=== PATIENT | male | born 1940 | race Caucasian/White ===

== ENCOUNTER 2023-09-04 10:42 | Day surgery (SDC) | payer MEDICARE, BC ==
[2023-08-31 15:14] LABS: Urine Bacteria None Seen /hpf (None Seen)
[2023-08-31 15:24] LABS: Hemoglobin 12.3 g/dL (13.5-17.5); Mean Corpuscular Hemoglobin 35.4 pg (28.0-32.0); Mean Corpuscular Hgb Conc. 33.1 g/dL (32.0-36.0); White Blood Cell 4.3 10^3/uL (4.4-10.8)
[2023-08-31 15:25] LABS: Hematocrit 37.1 % (41.0-53.0); Red Blood Cells 3.47 10^6/uL (4.5-5.90); Red Cell Distribution Width 15.4 % (11.8-14.3)
[2023-08-31 15:29] LABS: Urine Blood Negative /uL (Negative); Urine Clarity Clear (Clear); Urine Color Colorless (Yellow); Urine Protein, UAD Negative (Negative); Urine Specific Gravity 1.009 (1.001-1.035); Urine Urobilinogen Normal (Negative); Urine WBC 2 /hpf (0 - 3)
[2023-08-31 15:34] LABS: Basophils % (manual) 0 (0.0-2.0); Blast Cells 0; Metamyelocytes % 0; Myelocytes % 0; Promyelocytes % 0; Reactive Lymphocytes 0
[2023-08-31 15:40] LABS: INR 1.19 (0.9-1.15); Prothrombin Time 12.5 sec (9.3-11.8)
[2023-08-31 15:54] LABS: Alanine Aminotransferase 18 U/L (7-40); Albumin 4.2 g/dL (3.2-4.8); Alkaline Phosphatase 94 U/L (46-116); Anion Gap 5 (5-15); Aspartate Aminotransferase 26 U/L (13-40); BUN/Creatinine Ratio 15.3 (10.0-20.0); Blood Urea Nitrogen 15 mg/dL (9-23); Calcium 9.8 mg/dL (8.5-10.1); Carbon Dioxide 31 mmol/L (20-30); Chloride 104 mmol/L (98-107); Glucose 99 mg/dL (74-106); Potassium 4.3 mmol/L (3.5-5.1); Sodium 140 mmol/L (136-145)
[2023-08-31 15:55] LABS: Bilirubin, Total 0.8 mg/dL (0.2-1.0); Total Protein 6.5 g/dL (5.7-8.2)
[2023-08-31 16:15] LABS: Band Neutrophils % (manual) 5; Eosinophils % (manual) 8 (0-7); Lymphocytes % (manual) 20 (10.0-50.0); Monocytes % (manual) 10 (0-12)
[2023-08-31 16:16] LABS: Platelet Estimate Adequate
[~2023-09-04] VITALS: Ht 182.9 cm; Wt 68.0 kg
[~2023-09-04 10:42] MED LIST: DORZ2SOL18 OP; ROPI1TAB78 PO; WARF4TAB69 PO; mitoMYcin 40 MG in STERILE WATER 60 ML IS ONE
[2023-09-04] MEDS ORDERED: fentaNYL CITRATE 100 MCG/2 ML VL ONE (13:20)
[2023-09-04] MEDS ORDERED: MIDAZOLAM HCL 2MG/2ML 2ml VIAL (1mg/ml) ONE (13:21)
[2023-09-04] MEDS ORDERED: PHENYLEPHRINE HCL 10 MG/ML VL IV ONE (13:25)
[2023-09-04] MEDS ORDERED: DexAMETHasone SOD PHOS 10MG/1ML VIAL INJ ONE (13:56)
[2023-09-04] MEDS ORDERED: PROPOFOL 10 MG/ML 20 ML IV ONE (13:57)
[2023-09-04] MEDS ORDERED: MIDAZOLAM HCL 2MG/2ML 2ml VIAL (1mg/ml) IV PRN (14:00)
[2023-09-04] MEDS ORDERED: HYDROmorphone HCL 2 MG/ML VL/or syr IV PRN (14:00)
[2023-09-04] MEDS ORDERED: LABETALOL HCL 5 MG/ML 4ML SYRINGE IV PRN (14:00)
[2023-09-04] MEDS ORDERED: ONDANSETRON HCL 4 MG/2 ML VIAL IV ONE (14:00)
[2023-09-04] MEDS ORDERED: MORPHINE SULFATE 4 MG/ML SYR/VIAL IV PRN (14:00)
[2023-09-04] MEDS ORDERED: ePHEDrine SULFATE 50 MG/ML AMP IV PRN (14:00)
[2023-09-04 14:18] VITALS: TEMP 98.5; O2SAT 100
[2023-09-04 15:21] VITALS: BP 131/62; PULSE 55; RESP 13; O2SAT 98
== END 2023-09-04 15:35 | disposition home or self-care (01) ==
LOC: SUR 10:42
PROVIDERS: ATTEND Urology
DX: C67.4 Malignant neoplasm of posterior wall of bladder (principal); I48.91 Unspecified atrial fibrillation; I48.92 Unspecified atrial flutter; I10 Essential (primary) hypertension; Z83.3 Family history of diabetes mellitus; Z88.5 Allergy status to narcotic agent; Z79.899 Other long term (current) drug therapy; Z98.890 Other specified postprocedural states; Z86.2 Personal history of diseases of the blood and blood-forming organs and certain disorders involving the immune mechanism; Z98.41 Cataract extraction status, right eye; Z98.42 Cataract extraction status, left eye; Z87.891 Personal history of nicotine dependence
CPT/HCPCS: 36415; 51720; 52224; 80053; 81001; 85007; 85027; 85610; 85730; 87086; 88305; 88342; 93005; J1100; J2250; J2371; J2704; J3010; J9280

== ENCOUNTER 2024-03-13 10:21 | Day surgery (SDC) | payer MEDICARE, BC ==
[2024-03-11 14:57] LABS: Urine Bacteria None Seen /hpf (None Seen)
[2024-03-11 15:01] LABS: Mean Corpuscular Hgb Conc. 34.7 g/dL (32.0-36.0); Red Cell Distribution Width 13.6 % (11.8-14.3)
[2024-03-11 15:03] LABS: Hemoglobin 13.5 g/dL (13.5-17.5); Mean Corpuscular Hemoglobin 36.9 pg (28.0-32.0); Mean Corpuscular Volume 106.5 fL (80.0-100.0); Platelet Count (auto) 129 10^3/uL (140-450); Red Blood Cells 3.66 10^6/uL (4.5-5.90); White Blood Cell 3.8 10^3/uL (4.4-10.8)
[2024-03-11 15:05] LABS: Basophils % (manual) 0 (0.0-2.0); Blast Cells 0; Metamyelocytes % 0; Myelocytes % 0; Promyelocytes % 0; Reactive Lymphocytes 0
[2024-03-11 15:19] LABS: Band Neutrophils % (manual) 5; Eosinophils % (manual) 5 (0-7); Lymphocytes % (manual) 19 (10.0-50.0); Macrocytosis Marked; Monocytes % (manual) 14 (0-12)
[2024-03-11 15:21] LABS: INR 1.08 (0.9-1.15); Partial Thromboplastin Time 26.4 SEC (24.5-34.5); Platelet Estimate Decreased; Prothrombin Time 11.4 sec (9.3-11.8)
[2024-03-11 15:25] LABS: Urine Blood Negative /uL (Negative); Urine Clarity Clear (Clear); Urine Color Light-Yellow (Yellow); Urine Protein, UAD Negative (Negative); Urine Specific Gravity 1.016 (1.001-1.035); Urine Urobilinogen Normal (Negative); Urine WBC <1 /hpf (0 - 3); Urine pH 6.5 (5.0-9.0)
[2024-03-11 15:28] LABS: Alanine Aminotransferase 30 U/L (7-40); Alkaline Phosphatase 91 U/L (46-116); Anion Gap 1 (5-15); Aspartate Aminotransferase 23 U/L (13-40); BUN/Creatinine Ratio 18.3 (10.0-20.0); Blood Urea Nitrogen 19 mg/dL (9-23); Calcium 9.8 mg/dL (8.7-10.4); Carbon Dioxide 34 mmol/L (20-31); Chloride 106 mmol/L (98-107); Glucose 97 mg/dL (74-106); Potassium 4.5 mmol/L (3.5-5.1); Sodium 141 mmol/L (136-145)
[2024-03-11 15:29] LABS: Bilirubin, Total 0.4 mg/dL (0.2-1.0); Total Protein 6.5 g/dL (5.7-8.2)
[~2024-03-13] VITALS: Ht 182.9 cm; Wt 68.0 kg
[~2024-03-13 10:21] MED LIST changes: +ASCO500T11 PO; +CALC-437 OR; +CHOL1TAB28 PO; +DOCU-94 PO; +GLUC1CAP12 PO; +MAGN250T3 PO; +MULT-1199 PO; +PRED1SUS4 OP; -ROPI1TAB78 PO; -WARF4TAB69 PO; +WARF4TAB70 PO; +ZINC50TA7 PO; -mitoMYcin 40 MG in STERILE WATER 60 ML IS ONE; +mitoMYcin 40 MG in STERILE WATER 80 ML IS ONE
[2024-03-13] MEDS ORDERED: levoFLOXacin 500MG 100 ML IV ONE (10:44)
[2024-03-13] MEDS ORDERED: METOCLOPRAMIDE HCL 5MG/ml INJ 2ml VIAL IV ONE (11:45)
[2024-03-13] MEDS ORDERED: HYDROmorphone HCL 2 MG/ML VL/or syr IV PRN ×2 (11:45)
[2024-03-13] MEDS ORDERED: MORPHINE SULFATE INJ 2 MG/ml SYRG IV PRN (11:45)
[2024-03-13] MEDS ORDERED: BUPIVACAINE 0.5% P/F INJ 10 ML VIAL ONE (11:51)
[2024-03-13] MEDS ORDERED: SODIUM CHLORIDE LOCK 10 ML ONE (11:54)
[2024-03-13] MEDS ORDERED: fentaNYL CITRATE 100 MCG/2 ML VL ONE (11:54)
[2024-03-13] MEDS ORDERED: MIDAZOLAM HCL 2MG/2ML 2ml VIAL (1mg/ml) ONE (11:54)
[2024-03-13] MEDS ORDERED: PROPOFOL 10 MG/ML 20 ML IV ONE (11:54)
[2024-03-13] MEDS ORDERED: ONDANSETRON HCL 4 MG/2 ML VIAL ONE (11:54)
[2024-03-13 13:12] VITALS: TEMP 97.3
--- NOTE | 2024-03-13 13:24 | DVHDS2 ---
New Physician D'charge PN Admitting Diagnosis Admitting Diagnosis Recurrent bladder tumor Discharge Diagnosis Seen Operations or Procedures Trans urethral resection of the bladder tumor and mitomycin C instillation Reason(s) For Hospitalization Surgery Treatment Plan Discharge Condition of Discharge Good Disposition Home Discharge Instructions Diet: Regular Activity: Light activity Activity comment: Catheter care Medications: Given Follow Up Care Follow Up/Referral: Nichols removal on postop day 1. Discharge Statement: "Patient was advised to return to the ER or call 911 if any headaches, dizziness, shortness of breath, chest pain, abdominal pain, bleeding, fevers, or worsening of medical condition. Patient was counseled about treatment plan, medications, possible side effects, patientverbalized understanding. All questions were answered to the best of my ability. This discharge took greater then 30 minutes in planning, reviewing documentation, counseling the patient, and discussing with other team members." SHARITA QUIROZ MD Mar 13, 2024 13:24
[2024-03-13 15:57] VITALS: BP 129/62; PULSE 53; RESP 17; O2SAT 94
== END 2024-03-13 17:12 | disposition home or self-care (01) ==
LOC: SUR 10:21
PROVIDERS: ATTEND Urology
DX: C67.9 Malignant neoplasm of bladder, unspecified (principal); D49.4 Neoplasm of unspecified behavior of bladder; J43.9 Emphysema, unspecified; I48.91 Unspecified atrial fibrillation; Z79.899 Other long term (current) drug therapy; Z98.890 Other specified postprocedural states; Z88.5 Allergy status to narcotic agent; Z86.2 Personal history of diseases of the blood and blood-forming organs and certain disorders involving the immune mechanism
CPT/HCPCS: 36415; 52235; 80053; 81001; 85007; 85027; 85610; 85730; 87086; 87088; 88307; 88342; J1956; J2250; J2405; J2704; J3010; J3490; J9280

== ENCOUNTER 2025-03-20 11:15 | Inpatient (IN) | payer MEDICARE, BC ==
[~2025-03-20] VITALS: Ht 180.3 cm; Wt 66.0 kg
[~2025-03-20 11:15] MED LIST changes: -mitoMYcin 40 MG in STERILE WATER 80 ML IS ONE
--- NOTE | 2025-03-20 11:52 | ED.PDOC ---
General HPI Comments 84 y/o M presents with spouse for ryvzyt-zxpkf-zp-care following routine cystoscopy, today. Per spouse, patient's urologist, Dr. Alex Zimmerman, referred patient to ED for further workup after unsuccessful cystoscopy procedure, due to obstructing ureteral/bladder stone he was found with, this morning. Patient is asymptomatic. He has been receiving routine cystoscopy after going into remission for cancerous bladder tumor he had removed and treated with chemo- and radiation therapy in August 2023. Last PET scan patient received was benign, with exception of stone being present. Additional pertinent history of AFib s/p ablation - on Warfarin, emphysema, and hypothyroidism. Chief Complaint: Urinary Time Seen by MD: 11:30 Reviewed notes: Nurses Notes, Medications, Allergies Allergies: Coded Allergies: Codeine (Unverified Adverse Reaction, Mild, Hard to wake , 08/31/23) Home Meds Reported Medications Ascorbic Acid (VITAMIN C TABLET) 500 Mg Tb, 1000 MG PO DAILY, TAB 03/11/24 Docusate Sodium (Colace) 100 Mg Cap, 6 CAP PO DAILY, CAP 03/11/24 Zinc Gluconate (Zinc) 50 Mg Tab, 50 MG PO DAILY, TAB 03/11/24 Cholecalciferol (D3 2000) 2,000 Unit Tab, 2000 UNIT PO DAILY, TAB 03/11/24 Multiple Vitamins W/ Minerals (Centrum Minis Men 50+) 1 Tab Tab, 1 TAB PO DAILY, TAB 03/11/24 Czmkggrzjyy-Gjuzqrmfger-Riw C- (Glucosamine Chondroitin) 1 Cap Cap, 1 CAP PO DAILY, CAP 03/11/24 Magnesium (Magnesium 250 mg) 1 Tab Tab, 1 TAB PO TID, TAB 03/11/24 Calcium W/ Vitamins D & K (CALCIUM + D) Chw, 1 OR DAILY, TAB.CHEW 03/11/24 Prednisolone Acetate (Ophth) (Pred Forte) 1 % Nava, 1 % OP QID, ML 03/11/24 Warfarin Sodium (Warfarin Sodium) 1 Mg Tab, 1 MG PO UD, TAB 03/11/24 Dorzolamide-Timolol (Dorzolamide Hcl/Timolol M) 1 Ml Wendi, 1 ML OP BID, ML 08/31/23 Information Source: Patient Mode of Arrival: Ambulatory Severity: Moderate Inability to void: None Timing: Hours Duration: Since onset Prehospital treatment: Other (see HPI) History of: Other (see PMHx) Location: None Penile discharge: None Modifying factors: None associated signs and symptoms: None Past Medical History PAST MEDICAL HISTORY: AFIB (s/p cardiac ablation - on Warfarin), Cancer (bladder cancer ), COPD (emphysema ), Thyroid (hypothryoidism - on Levothyroxine) Past Medical History (Other): glaucoma Surgical History: Tonsillectomy Surgical History (Other): cataract surgery right eye shunt s/p glaucoma Family History Family History: No family hx of Cancer, No family hx of Heart johnna, No family hx of HTN, No family hx ofKidney johnna, No family hx of Liver johnna, No family hx of Lung johnna, Family hx of DM, Family hx of stroke Social History Smoker: Non-Smoker Alcohol: Denies ETOH Use Drugs: Denies Drug Use Lives In: Home Constitutional: denies: chills, diaphoresis, fatigue, fever, malaise, sweats, weakness, others EENTM: denies: blurred vision, double vision, ear bleeding, ear discharge, ear drainage, ear pain, ear ringing, eye pain, eye redness, hearing loss, mouth pain, mouth swelling, nasal discharge, nose bleeding, nose congestion, nose pain, photophobia, tearing, throat pain, throat swelling, voice changes, others Respiratory: denies: cough, hemoptysis, orthopnea, SOB at rest, shortness of breath, SOB with excertion, stridor, wheezing, others Cardiovascular: denies: chest pain, dizzy spells, diaphoresis, Dyspnea on exertion, edema, irregular heart beat, left arm pain, lightheadedness, palpitations, PND, syncope, others Gastrointestinal: denies: abdomen distended, abdominal pain, blood streaked bowels, constipated, diarrhea, dysphagia, difficulty swallowing, hematemesis, melena, nausea, poor appetite, poor fluid intake, rectal bleeding, rectal pain, vomiting, others Genitourinary: denies: burning, dysuria, flank pain, frequency, hematuria, incontinence, penile discharge, penile sore, pain, testicle pain, testicle swelling, urgency, others Neurological: denies: dizziness, fainting, headache, left sided numbness, left sided weakness, numbness, paresthesia, pre-existing deficit, right sided numbness, right sided weakness, seizure, speech problems, tingling, tremors, weakness, others Musculoskeletal: denies: back pain, gout, joint pain, joint swelling, muscle pain, muscle stiffness, neck pain, others Integumetry: denies: bruises, change in color, change in hair/nails, dryness, laceration, lesions, lumps, rash, wounds, others Allergic/Immunocompromised: denies: Difficulty Healing, Frequent Infections, Hives, Itching, others Hematologic/Lymphatic: denies: anemia, blood clots, easy bleeding, easy bruising, swollen glands, others Endocrine: denies: excessive hunger, excessive sweating, excessive thirst, excessive urination, flushing, intolerance to cold, intolerance to heat, unexplained weight gain, unexplained weight loss, others Psychiatric: denies: anxiety, bipolar disorder, depression, hopeless, panic disorder, schizophrenia, sleepless, suicidal, others All Other Systems: Reviewed and Negative Physical Exam General Appearance: No Apparent Distress HEENT: Normal ENT Inspection, Pharynx Normal, TMs Normal Neck: Full Range of Motion, Non-Tender, Normal, Normal Inspection Respiratory: Chest Non-Tender, Lungs Clear, No Accessory Muscle Use, No Respiratory Distress, Normal Breath Sounds Cardiovascular: No Edema, No JVD, No Murmur, No Gallop, Normal Peripheral Pulses, Regular Rate/Rhythm Breast Exam: Deferred Gastrointestinal: No Organomegaly, Non Tender, No Pulsatile Mass, Normal Bowel Sounds, Soft Genitalia: Deferred Pelvic: Deferred Rectal: Deferred Extremities: No calf tenderness, Normal capillary refill, No pedal edema Musculoskeletal : Apperance: Normal Neurologic: Alert, grain origination specialist II-XII nml as Tested, Motor Weakness, Normal Affect, Normal Mood, No Sensory Deficits Cerebellar Function: Normal Reflexes: Normal Skin: Dry, Normal Color, Warm Lymphatic: No Adenopathy Was a procedure done? Was a procedure done?: No Differential Diagnosis Kidney stone (Female): N/A Kidney stone (Male): N/A Penile/Scrotal: N/A Urinary Problem (Male): Bladder Outlet, Bladder Obstruction, Post op Complications, Urolithiasis Urinary Problem (Female): N/A X-Ray, Labs, Meds, VS Vital Signs Date Time Temp Pulse Resp B/P (MAP) Pulse Ox O2 Delivery O2 Flow Rate FiO2 03/20/25 11:16 97.2 70 18 149/81 97 97.2 Timestamp: 1145 Spoke and discuss about the patient with Dr. Zimmerman. Patient will be admitted to the hospital for further workup. We did speak with Dr. Zimmerman and he is going to be doing the surgery today. The patient is to remain NPO today. We did discuss the findings with the patient and his . We are ordering some preop labs and EKG Time of 1ST Reevaluation: 12:00 Reevaluation 1ST: Unchanged Patient Education/Counseling: Diagnosis, Treatment, Other (need for admission ) Family Education/Counseling: Diagnosis, Treatment, Other (need for admission ) SEPSIS Sepsis Screen Date sepsis recognized/suspect: Mar 20, 2025 Time Sepsis recognized/suspect: 1118 Recent Procedure: Yes On Antibiotic Therapy: No Respiratory Rate >20: No Heart Rate >90: No Temp<36 C (96.8 F) or >38.3 C: No SBP <90 or MAP <65 mmHG: No New Acute Mental Status Change: No Is the patient on CPAP, BIPAP,: No Physician Orders Heplock Iv (03/20/25 11:45) Npo (Nothing By Mouth) Diet (03/20/25 Lunch) Basic Metabolic Panel (03/20/25 11:45) PTPTT (03/20/25 11:45) Complete Blood Count (03/20/25 11:45) Electrocardigram (03/20/25 11:52) Vital Signs Date Time Temp Pulse Resp B/P (MAP) Pulse Ox O2 Delivery O2 Flow Rate FiO2 03/20/25 11:16 97.2 70 18 149/81 97 97.2 Departure 1 Departure Time of Disposition: 11:57 Impression: Primary Impression: Ureterolithiasis Disposition: 09 ADMITTED INPATIENT Admit to: Tele Condition: Fair Critical Care Note Critical Care Time?: No Stability Stability form required: Yes Unstable for transfer: ED Physician Assesment (Clinical assesment) Heart Score Heart Score: Heart Score Response (Comments) Value History N/A 0 EKG N/A 0 Age N/A 0 Risk Factors N/A 0 Troponin N/A 0 Total 0 I personally scribed for FRIDA ROGDERS MD ([email or web address]) on 03/20/25 at 11:52. Electronically submitted by Ariel Pérez ([email or web address]). FRIDA RODGERS MD Mar 20, 2025 11:52
[2025-03-20] MEDS ORDERED: HYDROcodone-ACET 5/325MG TAB PO PRN (12:45)
[2025-03-20] MEDS ORDERED: ONDANSETRON HCL 4 MG/2 ML VIAL IV PRN ×2 (12:45→17:00)
[2025-03-20] MEDS ORDERED: ACETAMINOPHEN 325 MG TAB PO PRN (12:45)
[2025-03-20] MEDS ORDERED: MORPHINE SULFATE INJ 2 MG/ml SYRG IV PRN (12:45)
[2025-03-20 12:50] LABS: Hematocrit 41.3 % (41.0-53.0); Hemoglobin 13.7 g/dL (13.5-17.5); Mean Corpuscular Hemoglobin 32.9 pg (28.0-32.0); Mean Corpuscular Volume 99.0 fL (80.0-100.0)
--- NOTE | 2025-03-20 12:54 | DVHHP2 ---
History of Present Illness Reason for Visit: Obstructing ureteral/bladder stone History of Present Illness Vinny Ornelas is an 84-year-old male with past medical history of hard of hearing with hearing aids, AFib status post cardiac ablation on warfarin, bladder cancer, COPD, emphysema, hypothyroidism, glaucoma, tonsillectomy, cataract surgery, right eye shunt status post glaucoma, and TURP who presents to the ED with obstructing ureteral/bladder stone, had a cystoscopy at the clinic and was found to have an obstructing stone, was sent here by Dr. Zimmerman for further evaluation. Patient reports that he takes warfarin for his AFib in his last dose was this morning. He also reports that he has restless legs syndrome and takes ropinirole. Patient reports that he lives at home with his and does not use any DMEs. He also reports that his pain in his bladder is 3/10 stabbing like and intermittent nature. Patient denies any hematuria at this time. Patient reported that he fell 1-1/2 months ago has a back fracture and using a back brace. Was advised that is non-operable and would heal. Patient reports that he does not have physical therapy. Patient denies any recent sick contacts, recent travels, recent ingestion of spoiled food, chest pain, shortness of breath, fever, chills, lightheadedness, weakness, dizziness, nausea, vomiting, or diarrhea. Pulmonary: COPD, Other (Emphysema) Endocrine: Hypothyroidism Past Medical History Bladder cancer Glaucoma Past Surgical History: Other (Cardiac ablation, cataract surgery), Tonsillectomy, TURP Family History: Other (Both parents ) Smoke: No ALCOHOL: none Drugs: None Lives: with Family Domestic Violence: Neg Review of Systems Genitourinary: Other (Ureterolithiasis) Allergies: Coded Allergies: Codeine (Unverified Adverse Reaction, Mild, Hard to wake , 08/31/23) Exam Vital Signs Vital Signs Date Time Temp Pulse Resp B/P (MAP) Pulse Ox O2 Delivery O2 Flow Rate FiO2 03/20/25 11:16 97.2 70 18 149/81 97 97.2 General Appearance: Alert, Oriented X3, Cooperative, No acute distress HEENT: Atraumatic, PERRLA, EOMI, Mucous membr. moist/pink Respiratory: Clear to auscultation, Normal air movement Cardiovascular: Regular rate, Normal S1, Normal S2, No murmurs Abdominal: Normal bowel sounds, Soft Extremities: No clubbing, No cyanosis Neuro: Normal speech, Strength at 5/5 X4 ext, Normal tone, Sensation intact Psych/Mental Status: Mental status NL, Mood NL Labs/Xrays Labs Test 03/20/25 12:07 Range/Units SEPSIS Sepsis Screen Date sepsis recognized/suspect: Mar 20, 2025 Time Sepsis recognized/suspect: 1118 Recent Procedure: Yes On Antibiotic Therapy: No Respiratory Rate >20: No Heart Rate >90: No Temp<36 C (96.8 F) or >38.3 C: No SBP <90 or MAP <65 mmHG: No New Acute Mental Status Change: No Is the patient on CPAP, BIPAP,: No Physician Orders Heplock Iv (03/20/25 11:45) Npo (Nothing By Mouth) Diet (03/20/25 Lunch) Basic Metabolic Panel (03/20/25 11:45) PTPTT (03/20/25 11:45) Complete Blood Count (03/20/25 11:45) Electrocardigram (03/20/25 11:52) Vital Signs Date Time Temp Pulse Resp B/P (MAP) Pulse Ox O2 Delivery O2 Flow Rate FiO2 03/20/25 11:16 97.2 70 18 149/81 97 97.2 Laboratory Tests Test 03/20/25 12:07 White Blood Count Pending Assessment/Plan Assessment/Plan Assessment Bladder/ureteral obstruction with intractable pain, ureterolithiasis History of AFib status post cardiac ablation on warfarin History of bladder cancer History of COPD History of emphysema History of hypothyroidism History of glaucoma History of tonsillectomy History of cataract surgery History of right eye shunt status post glaucoma History of TURP History of restless leg syndrome Plan Admit to med surge Antiemetics Pain management EKG not in chart PT/PTT IV fluids UA Urine culture NPO Home medications reconciled DVT prophylaxis-SCDs PUD prophylaxis-not indicated history of GERD or GI bleed Discussed plan of care with patient and nurse Rounding hospitalist to resume warfarin once procedure done with neurologist ED doctor discussed with the urologist and aware patient is here [id number] Preventive counseling healthy eating habits, physical activity, and regular checkups Plan discussed with: Patient Date of Service: Mar 20, 2025 Billing Provider: HAZEL TORRES Common Visit Codes: [id number] INP/OBS CARE (HIGH) Secondary Visit Codes: [id number] COUNSELING IND HAZEL TORRES MANAGER HRIS Mar 20, 2025 12:54
[2025-03-20 12:56] LABS: Chloride 102 mmol/L (98-107); Potassium 4.6 mmol/L (3.5-5.1); Sodium 142 mmol/L (136-145)
[2025-03-20 12:57] LABS: Anion Gap 8 (5-15); Calcium 9.2 mg/dL (8.7-10.4)
[2025-03-20 13:00] LABS: Carbon Dioxide 32 mmol/L (20-31)
[2025-03-20 13:01] LABS: INR 2.33 (0.9-1.15); Partial Thromboplastin Time 38.5 SEC (24.5-34.5); Prothrombin Time 22.7 sec (9.3-11.8)
[2025-03-20 13:02] LABS: BUN/Creatinine Ratio 30.5 (10.0-20.0)
[2025-03-20 13:05] LABS: Blood Urea Nitrogen 32 mg/dL (9-23); Glucose 106 mg/dL (74-106)
[2025-03-20 13:16] LABS: Total Cells Counted 100.0 (100)
[2025-03-20] MEDS: SODIUM CHLORIDE 0.9% 1,000 ML IV SCH (14:02)
[2025-03-20 14:43] VITALS: PULSE 74; RESP 20; O2SAT 96
--- NOTE | 2025-03-20 16:02 | DVHINCON2 ---
Date of service: Mar 20, 2025 Referring Physician [facility] Reason for Consultation Urethral stone History of Present Illness Patient was found to have urethral stone on urethroscopy today. Past Medical History Bladder cancer Past Surgical History TURBT PAE Cardiac ablation Allergies: Coded Allergies: Codeine (Unverified Adverse Reaction, Mild, Hard to wake , 08/31/23) Home Meds Reported Medications Ascorbic Acid (VITAMIN C TABLET) 500 Mg Tb, 1000 MG PO DAILY, TAB 03/11/24 Docusate Sodium (Colace) 100 Mg Cap, 6 CAP PO DAILY, CAP 03/11/24 Zinc Gluconate (Zinc) 50 Mg Tab, 50 MG PO DAILY, TAB 03/11/24 Cholecalciferol (D3 2000) 2,000 Unit Tab, 2000 UNIT PO DAILY, TAB 03/11/24 Multiple Vitamins W/ Minerals (Centrum Minis Men 50+) 1 Tab Tab, 1 TAB PO DAILY, TAB 03/11/24 Lyrwkkmasur-Glxpfjhervl-Kei C- (Glucosamine Chondroitin) 1 Cap Cap, 1 CAP PO DAILY, CAP 03/11/24 Magnesium (Magnesium 250 mg) 1 Tab Tab, 1 TAB PO TID, TAB 03/11/24 Calcium W/ Vitamins D & K (CALCIUM + D) Chw, 1 OR DAILY, TAB.CHEW 03/11/24 Prednisolone Acetate (Ophth) (Pred Forte) 1 % Nava, 1 % OP QID, ML 03/11/24 Warfarin Sodium (Warfarin Sodium) 1 Mg Tab, 1 MG PO UD, TAB 03/11/24 Dorzolamide-Timolol (Dorzolamide Hcl/Timolol M) 1 Ml Wendi, 1 ML OP BID, ML 08/31/23 Current Medications Current Medications Medications (Trade) Dose Ordered Sig/Jeromy Route PRN Reason Start Time Stop Time Status Last Admin Sodium Chloride 1,000 ml @ 60 mls/hr [id number] IV 03/20/25 12:45 03/20/25 14:02 Acetaminophen/ Hydrocodone Bitart ([place] 5/325MG Tab) 1 tab Q4HP PRN PO MODERATE PAIN (4-6 PAIN SCALE) 03/20/25 12:45 Ondansetron HCl (Zofran) 4 mg Q4HP PRN IV NAUSEA / VOMITING 03/20/25 12:45 Acetaminophen (Tylenol Tablet) 650 mg Q6HP PRN PO PAIN SCALE 1-3 OR TEMP>100.4 03/20/25 12:45 Morphine Sulfate 2 mg Q4HPRN PRN IV SEVERE PAIN (7-10 PAIN SCALE) 03/20/25 12:45 Hold Ascorbic Acid (Vitamin C Tablet) 1,000 mg DAILY PO 03/21/25 10:00 Multivitamins/ Minerals (Mvi W/ Minerals Tablet) 1 tab DAILY PO 03/21/25 10:00 Calcium/Vitamin D (Oscal W/Vit D Tablet) 1 tab DAILY PO 03/21/25 10:00 Cholecalciferol (Vitamin D3 Tablet) 2,000 unit DAILY PO 03/21/25 10:00 Magnesium Oxide (Mag-Ox Tablet) 400 mg BID PO 03/20/25 22:00 Zinc Sulfate 220 mg DAILY PO 03/21/25 10:00 Review of Systems Urinary stream decrease Vital Signs Vital Signs Date Time Temp Pulse Resp B/P (MAP) Pulse Ox O2 Delivery O2 Flow Rate FiO2 03/20/25 14:43 98.2 74 20 132/61 (84) 95 98.2 Physical Exam Cystoscopy: Male Cystoscopy Informed consent obtained., Patient is prepped and draped in usual sterile condition in appropriate position.. Urethra There is a large obstructing urethral stone approximately 3 cm from the urethral meatus. And, it is a preventing further evaluation of his prostate and bladder. Prostate Unable to evaluate. Bladder Unable to evaluate. Labs/Diagnostic Data Labs Test 03/20/25 12:07 Range/Units White Blood Count 6.5 4.4-10.8 10^3/uL Red Blood Count 4.17 L 4.5-5.90 10^6/uL Hemoglobin 13.7 13.5-17.5 g/dL Hematocrit 41.3 41.0-53.0 % Mean Corpuscular Volume 99.0 80.0-100.0 fL Mean Corpuscular Hemoglobin 32.9 H 28.0-32.0 pg Mean Corpuscular Hemoglobin Concent 33.3 32.0-36.0 g/dL Red Cell Distribution Width 14.1 11.8-14.3 % Platelet Count 199 140-450 10^3/uL Mean Platelet Volume 7.7 6.9-10.8 fL Neutrophils (%) (Auto) 37.0-80.0 % Lymphocytes (%) (Auto) 10.0-50.0 % Monocytes (%) (Auto) 0.0-12.0 % Basophils (%) (Auto) 0.0-2.0 % Neutrophils # (Auto) 1.6-8.6 10 ^3/uL Lymphocytes # (Auto) 0.4-5.4 10 ^3/uL Monocytes # (Auto) 0-1.3 10 ^3/uL Differential Total Cells Counted 100.0 100 Neutrophils % (Manual) 69 37.0-80.0 Band Neutrophils % (Manual) 1 Lymphocytes % (Manual) 9 L 10.0-50.0 Monocytes % (Manual) 15 H 0-12 Eosinophils % (Manual) 6 0-7 Basophils % (Manual) 0 0.0-2.0 Metamyelocytes % (manual) 0 Myelocytes % (Manual) 0 Promyelocytes % (Manual) 0 Blast Cells % (Manual) 0 Reactive Lymphocytes 0 Platelet Estimate Adequate Prothrombin Time 22.7 H 9.3-11.8 sec Prothrombin Time INR 2.33 H 0.9-1.15 Activated Partial Thromboplast Time 38.5 H 24.5-34.5 SEC Sodium Level 142 136-145 mmol/L Potassium Level 4.6 3.5-5.1 mmol/L Chloride Level 102 98-107 mmol/L Carbon Dioxide Level 32 H 20-31 mmol/L Anion Gap 8 5-15 Blood Urea Nitrogen 32 H 9-23 mg/dL Creatinine 1.05 0.700-1.30 mg/dL Glomerular Filtration Rate Calc 70 >90 mL/min BUN/Creatinine Ratio 30.5 H 10.0-20.0 Serum Glucose 106 74-106 mg/dL Calcium Level 9.2 8.7-10.4 mg/dL Assessment Urethral stone Urinary retention Plan/Recommendation Cystoscopy with laser lithotripsy of urethral stone Plan discussed with: Patient, Spouse SHARITA QUIROZ MD Mar 20, 2025 16:02
[2025-03-20] MEDS ORDERED: DORZ2SOL18 LEFTEYE (16:12)
[2025-03-20] MEDS ORDERED: ROPI0.5T26 PO (16:12)
[2025-03-20] MEDS ORDERED: PRED1SUS4 OP (16:12)
[2025-03-20] MEDS ORDERED: LEVO50TA7 PO (16:12)
[2025-03-20 16:46] VITALS: PULSE 91; RESP 16; O2SAT 97
--- NOTE | 2025-03-20 16:59 | DVHNC2 ---
Procedure - OPERATIVE REPORT Pre-op. Diagnosis: Urethral stone, 3 cm History of bladder cancer Post-op. Diagnosis: Same as pre-op diagnosis Operation: Cystoscopy with Laser Cystolitholapaxy Anesthesia: General Indications: Patient was found to have symptomatic urethral stone >3 cm. Informed Consent: Indications, risks, complications, alternatives and benefits of Holmium laser cystolitholapaxy were discussed with patient. All question were encouraged and answered. He elected to proceed. Details of Procedure: Under satisfactory anesthesia, the patient was positioned in lithotomy and cystoscopy is performed with finding of large (>3 cm) urethral stone approximately 3 cm from the urethral meatus. Using the thulium laser fiber (200 micron) the urethral calculus is pulverized into fragments, which were subsequently removed with Ellick evacuator. Bladder was accessed with findings of more bladder stones. The stones were fragmented with laser and removed. There were more stones adherent to the bladder wall with tumors. Given, patient's INR 2.2, I decided not to resect the tumor or laser the stones stuck on the tumors. Cystoscope was removed. [address] catheter is placed. The patient was then taken off the OR table and sent to recovery room in stable condition. Specimens: Bladder and urethral calculi fragments Complications: None Findings: Bladder tumors with stones adherent SHARITA QUIROZ MD Mar 20, 2025 16:59
[2025-03-20 17:00] VITALS: PULSE 81; RESP 15; O2SAT 95
[2025-03-20] MEDS ORDERED: HYDROmorphone HCL 2 MG/ML VL/or syr IV PRN (17:00)
[2025-03-20] MEDS ORDERED: FLUMAZENIL 0.1 MG/ML INJ 10ML MDV IV PRN (17:00)
[2025-03-20] MEDS ORDERED: NALOXONE HCL 0.4 MG/ML VIAL IV PRN (17:00)
[2025-03-20] MEDS ORDERED: hydrALAZINE HCL 20 MG/ML VL IV PRN (17:00)
[2025-03-20] MEDS ORDERED: fentaNYL CITRATE 100 MCG/2 ML VL IV PRN (17:00)
[2025-03-20 17:53] VITALS: BP 150/73; PULSE 71; RESP 18; TEMP 97.5; O2SAT 98
[2025-03-20] MEDS ORDERED: WARF4TAB69 PO (19:57)
[2025-03-20 20:00] VITALS: PULSE 70; RESP 18; O2SAT 97
[2025-03-20 21:00] VITALS: BP 105/65; PULSE 70; RESP 18; TEMP 98.1; O2SAT 97
[2025-03-20] MEDS: MAGNESIUM OXIDE 400 MG TAB PO SCH (22:27)
[2025-03-21] VITALS (8 sets, daily range): BP systolic 109–138; BP diastolic 52–79; PULSE 61–77; RESP 16–20; TEMP 98–98.5; O2SAT 95–98
[2025-03-21 02:43] LABS: Urine Protein, UAD Negative (Negative)
[2025-03-21 06:41] LABS: Hematocrit 36.3 % (41.0-53.0); Hemoglobin 12.5 g/dL (13.5-17.5); Mean Corpuscular Hemoglobin 33.4 pg (28.0-32.0); Mean Corpuscular Volume 97.1 fL (80.0-100.0); Nucleated Red Blood Cells % 0.0 %
[2025-03-21 06:56] LABS: Alanine Aminotransferase 14 U/L (7-40); Alkaline Phosphatase 102 U/L (46-116); Anion Gap 10 (5-15); BUN/Creatinine Ratio 26.8 (10.0-20.0); Calcium 8.8 mg/dL (8.7-10.4); Carbon Dioxide 27 mmol/L (20-31); Chloride 104 mmol/L (98-107); Glucose 83 mg/dL (74-106); Potassium 4.3 mmol/L (3.5-5.1); Sodium 141 mmol/L (136-145); Total Protein 5.8 g/dL (5.7-8.2)
[2025-03-21 06:57] LABS: Albumin 3.3 g/dL (3.2-4.8); Bilirubin, Total 0.5 mg/dL (0.2-1.0)
[2025-03-21 06:58] LABS: Blood Urea Nitrogen 30 mg/dL (9-23)
[2025-03-21] MEDS: ZINC SULFATE 220mg CAP or TAB PO SCH (10:00)
[2025-03-21] MEDS ORDERED: PATIENTS OWN MEDICATION PO SCH ×2 (10:00→23:00)
[2025-03-21] MEDS: CALCIUM W/VIT D (600MG/400IU) TAB PO SCH (10:58)
[2025-03-21] MEDS: CHOLECALCIFEROL (VITD3) 1,000UNIT=25mCg TAB PO SCH (11:20)
[2025-03-21] MEDS: ASCORBIC ACID 500 MG TAB PO SCH (11:20)
[2025-03-21] MEDS: MULTIPLE VITAMINS W/ MINERALS TAB PO SCH (11:21)
--- NOTE | 2025-03-21 12:25 | DVHPN2 ---
Reviewed: Care Plan, H&P, Labs, Medications, Previous Orders, Radiology Changes from previous H/P or p: No Changes Genitourinary: Other (Ureterolithiasis) Objective Vitals Vital Signs Date Time Temp Pulse Resp B/P (MAP) Pulse Ox O2 Delivery O2 Flow Rate FiO2 03/21/25 08:35 98.3 66 16 122/70 (87) 98 98.3 03/21/25 08:00 Room Air* 0 21 Intake/Output Intake and Output 03/21/25 07:00 Intake Total 400 ml Output Total 89906 ml Balance -43456 ml Intake Oral 400 ml Output Urine Total 19065 ml Medications Current Medications Medications Dose Ordered Sig/Jeromy Route Start Time Stop Time Status Last Admin Dose Admin Sodium Chloride 1,000 ml @ 60 mls/hr [id number] IV 03/20/25 12:45 03/21/25 05:41 60 MLS/HR Acetaminophen/ Hydrocodone Bitart 1 tab Q4HP PRN PO 03/20/25 12:45 Ondansetron HCl 4 mg Q4HP PRN IV 03/20/25 12:45 Acetaminophen 650 mg Q6HP PRN PO 03/20/25 12:45 Morphine Sulfate 2 mg Q4HPRN PRN IV 03/20/25 12:45 Hold Ascorbic Acid 1,000 mg DAILY PO 03/21/25 10:00 03/21/25 11:20 1,000 MG Multivitamins/ Minerals 1 tab DAILY PO 03/21/25 10:00 03/21/25 11:21 1 TAB Calcium/Vitamin D 1 tab DAILY PO 03/21/25 10:00 03/21/25 10:58 1 TAB Cholecalciferol 2,000 unit DAILY PO 03/21/25 10:00 03/21/25 11:20 2,000 UNIT Magnesium Oxide 400 mg BID PO 03/20/25 22:00 03/21/25 11:21 400 MG Zinc Sulfate 220 mg DAILY PO 03/21/25 10:00 Laboratory Results Laboratory Tests 03/21/25 05:25 Chemistry Test 03/21/25 05:25 Albumin 3.3 g/dL (3.2-4.8) Calcium Level 8.8 mg/dL (8.7-10.4) Total Protein 5.8 g/dL (5.7-8.2) LFT Test 03/21/25 05:25 Alanine Aminotransferase (ALT) 14 U/L (7-40) Alkaline Phosphatase 102 U/L (46-116) Aspartate Amino Transferase (AST) 20 U/L (13-40) Total Bilirubin 0.5 mg/dL (0.2-1.0) Urinalysis Test 03/20/25 01:42 Urine Color Colorless (Yellow) Urine Clarity Clear (Clear) Urine pH 6.5 (5.0-9.0) Urine Specific [place] 1.006 (1.001-1.035) Urine Protein Negative (Negative) Urine Ketones Negative (Negative) Urine Blood 3+ /uL (Negative) H Urine Nitrite Negative (Negative) Urine Bilirubin Negative (Negative) Urine Urobilinogen Normal mg/dL (Negative) Urine Leukocyte Esterase Trace /uL (Negative) Urine RBC 176 /hpf (0 - 3) Urine Microscopic WBC 6 /HPF (0-3) H Urine Squamous Epithelial Cells None seen /hpf (<5) Urine Bacteria None seen /hpf (None Seen) Urine Glucose 1+ mg/dL (Normal) H Labs and/or images reviewed: Labs reviewed by me, Image(s) reviewed by me Assessment/Plan Assessment/Plan Bladder/ureteral obstruction with intractable pain secondary to ureterolithiasis s/p Cystoscopy with Laser Cystolitholapaxy by Urology Dr. Zimmerman on 03/20/2025 AFib status post cardiac ablation on Coumadin History of bladder cancer history of TURP COPD Emphysema Hypothyroidism Glaucoma Restless leg syndrome UTI: Urine cultures Rocephin Amira [phone] at bedside Time spent 70 minutes Advanced care planning time 20 minutes Patient is full code Plan discussed with: Patient Date of Service: Mar 21, 2025 Billing Provider: DANNA DARNELL MD Common Visit Codes: [id number] CARE 30-74 MIN DANNA DARNELL MD Mar 21, 2025 12:25
[2025-03-21] MEDS: prednisoLONE ACETATE 1% OPTH SUSP 5ML EACHEYE ONE (14:00)
[2025-03-21] MEDS: OXYBUTYNIN CHL 5 MG TAB PO ONE (15:38)
[2025-03-21] MEDS: DORZOLAM-TIMOLOL(2/0.5%) OPTH(EYE) SOLN 10ML LEFTEYE SCH (15:39)
[2025-03-21] MEDS ORDERED: DOCUSATE SOD 100 MG CAP PO ONE ×2 (17:14→22:08)
[2025-03-21] MEDS: DOCUSATE SOD 100 MG CAP PO SCH (17:28)
[2025-03-22 01:00] VITALS: BP 102/62; PULSE 62; RESP 18; TEMP 98.2; O2SAT 94
[2025-03-22 05:00] VITALS: BP 117/68; PULSE 59; RESP 17; TEMP 98.1; O2SAT 91
[2025-03-22] MEDS ORDERED: LEVOTHYROXINE SODIUM 25 MCG TAB ONE (05:34)
[2025-03-22] MEDS: LEVOTHYROXINE SODIUM 25 MCG TAB PO SCH (05:40)
[2025-03-22 08:00] VITALS: RESP 17
--- NOTE | 2025-03-22 08:21 | DVHPN2 ---
Reviewed: Care Plan, H&P, Labs, Medications, Previous Orders, Radiology Changes from previous H/P or p: No Changes Genitourinary: Other (Ureterolithiasis) Objective Vitals Vital Signs Date Time Temp Pulse Resp B/P (MAP) Pulse Ox O2 Delivery O2 Flow Rate FiO2 03/22/25 05:00 98.1 59 17 117/68 (84) 91 98.1 03/21/25 20:00 Room Air* 0 21 Intake/Output Intake and Output 03/22/25 07:00 Intake Total 1700 ml Output Total 2100 ml Balance -400 ml Intake Oral 1700 ml Output Urine Total 2100 ml # Bowel Movements 2 Medications Current Medications Medications Dose Ordered Sig/Jeromy Route Start Time Stop Time Status Last Admin Dose Admin Sodium Chloride 1,000 ml @ 60 mls/hr [id number] IV 03/20/25 12:45 03/21/25 05:41 60 MLS/HR Acetaminophen/ Hydrocodone Bitart 1 tab Q4HP PRN PO 03/20/25 12:45 Ondansetron HCl 4 mg Q4HP PRN IV 03/20/25 12:45 Acetaminophen 650 mg Q6HP PRN PO 03/20/25 12:45 Morphine Sulfate 2 mg Q4HPRN PRN IV 03/20/25 12:45 Hold Ascorbic Acid 1,000 mg DAILY PO 03/21/25 10:00 03/21/25 11:20 1,000 MG Multivitamins/ Minerals 1 tab DAILY PO 03/21/25 10:00 03/21/25 11:21 1 TAB Calcium/Vitamin D 1 tab DAILY PO 03/21/25 10:00 03/21/25 10:58 1 TAB Cholecalciferol 2,000 unit DAILY PO 03/21/25 10:00 03/21/25 11:20 2,000 UNIT Magnesium Oxide 400 mg BID PO 03/20/25 22:00 03/21/25 22:39 400 MG Zinc Sulfate 220 mg DAILY PO 03/21/25 10:00 Ceftriaxone Sodium 50 ml @ 100 mls/hr DAILY@09 IV 03/22/25 09:00 Patient Own Medication 1 HS PO 03/21/25 23:00 UNV Patient Own Medication 1 DAILY@2300 PO 03/21/25 23:00 03/21/25 22:39 1 Patient Own Medication 2 BID@1130,2100 PO 03/21/25 13:15 03/21/25 21:11 2 Levothyroxine Sodium 75 mcg QAM@0600 PO 03/22/25 06:00 03/22/25 05:40 75 MCG Patient Own Medication 1 DAILY EACHEYE 03/21/25 15:30 03/21/25 15:39 1 Dorzolamide/ Timolol 1 drop BID LEFTEYE 03/21/25 22:00 03/21/25 15:39 1 DROP Docusate Sodium 100 mg BID PO 03/21/25 16:50 03/21/25 22:39 100 MG Laboratory Results Laboratory Tests 03/21/25 05:25 Urinalysis Test 03/20/25 01:42 Urine Color Colorless (Yellow) Urine Clarity Clear (Clear) Urine pH 6.5 (5.0-9.0) Urine Specific [place] 1.006 (1.001-1.035) Urine Protein Negative (Negative) Urine Ketones Negative (Negative) Urine Blood 3+ /uL (Negative) H Urine Nitrite Negative (Negative) Urine Bilirubin Negative (Negative) Urine Urobilinogen Normal mg/dL (Negative) Urine Leukocyte Esterase Trace /uL (Negative) Urine RBC 176 /hpf (0 - 3) Urine Microscopic WBC 6 /HPF (0-3) H Urine Squamous Epithelial Cells None seen /hpf (<5) Urine Bacteria None seen /hpf (None Seen) Urine Glucose 1+ mg/dL (Normal) H Labs and/or images reviewed: Labs reviewed by me, Image(s) reviewed by me Assessment/Plan Assessment/Plan Bladder/ureteral obstruction with intractable pain secondary to ureterolithiasis s/p Cystoscopy with Laser Cystolitholapaxy by Urology Dr. Zimmerman on 03/20/2025 AFib status post cardiac ablation on Coumadin History of bladder cancer history of TURP COPD Emphysema Hypothyroidism Glaucoma Restless leg syndrome Amira [phone] at bedside Time spent 50 minutes Advanced care planning time 20 minutes Patient is full code Patient feels better and wants to go home EVELIA Serrano present at bedside Plan discussed with: Patient My Orders Orders - DANNA DARNELL MD Procedure Category Date Status Time Ceftriaxone 1gm/50ml PHA 03/22/25 In Process (Rocephin) 09:00 Patients Own PHA 03/21/25 In Process Medication 23:00 Patients Own PHA 03/21/25 In Process Medication 13:15 Levothyroxine Tablet PHA 03/22/25 In Process (Synthroid Tablet) 06:00 Dorzolamide-Timolol PHA 03/21/25 In Process Opthalmic (Cosopt Op 22:00 * Dietary Consult CONS 03/21/25 Transmitted 14:11 Cleanse Wound With ARY 03/21/25 In Process Wound Clean 10:50 Foam Cradle To ORDERS 03/21/25 Transmitted Bilateral Feet 14:13 Patients Own PHA 03/21/25 In Process Medication 15:30 Docusate Sodium PHA 03/21/25 In Process Capsule (Colace 16:50 Date of Service: Mar 22, 2025 Billing Provider: DANNA DARNELL MD Common Visit Codes: [id number] INP/OBS CARE(HIGH) DANNA DARNELL MD Mar 22, 2025 08:21
--- NOTE | 2025-03-22 08:26 | DVHDS2 ---
Discharge Summary Date of Admission Mar 20, 2025 at 12:42 Date of Discharge: Mar 22, 2025 Admitting Diagnosis Hematuria Wounds: Cystolitholapaxy Labs/Diagnostic Data: Laboratory Results Test 03/21/25 05:25 03/20/25 12:07 03/20/25 01:42 White Blood Count 7.2 10^3/uL (4.4-10.8) Red Blood Count 3.74 10^6/uL (4.5-5.90) Hemoglobin 12.5 g/dL (13.5-17.5) Hematocrit 36.3 % (41.0-53.0) Mean Corpuscular Volume 97.1 fL (80.0-100.0) Mean Corpuscular Hemoglobin 33.4 pg (28.0-32.0) Mean Corpuscular Hemoglobin Concent 34.4 g/dL (32.0-36.0) Red Cell Distribution Width 13.6 % (11.8-14.3) Platelet Count 160 10^3/uL (140-450) Mean Platelet Volume 7.9 fL (6.9-10.8) Neutrophils (%) (Auto) 77.0 % (37.0-80.0) Lymphocytes (%) (Auto) 6.2 % (10.0-50.0) Monocytes (%) (Auto) 16.6 % (0.0-12.0) Eosinophils (%) (Auto) 0.0 % (0.0-7.0) Basophils (%) (Auto) 0.2 % (0.0-2.0) Neutrophils # (Auto) 5.5 10 ^3/uL (1.6-8.6) Lymphocytes # (Auto) 0.4 10 ^3/uL (0.4-5.4) Monocytes # (Auto) 1.2 10 ^3/uL (0-1.3) Eosinophils # (Auto) 0 10 ^3/uL (0-0.8) Basophils # (Auto) 0 10 ^3/uL (0-0.2) Nucleated Red Blood Cells 0.0 % Sodium Level 141 mmol/L (136-145) Potassium Level 4.3 mmol/L (3.5-5.1) Chloride Level 104 mmol/L (98-107) Carbon Dioxide Level 27 mmol/L (20-31) Anion Gap 10 (5-15) Blood Urea Nitrogen 30 mg/dL (9-23) Creatinine 1.12 mg/dL (0.700-1.30) Glomerular Filtration Rate Calc 65 mL/min (>90) BUN/Creatinine Ratio 26.8 (10.0-20.0) Serum Glucose 83 mg/dL (74-106) Calcium Level 8.8 mg/dL (8.7-10.4) Total Bilirubin 0.5 mg/dL (0.2-1.0) Aspartate Amino Transferase (AST) 20 U/L (13-40) Alanine Aminotransferase (ALT) 14 U/L (7-40) Alkaline Phosphatase 102 U/L (46-116) Total Protein 5.8 g/dL (5.7-8.2) Albumin 3.3 g/dL (3.2-4.8) Differential Total Cells Counted 100.0 (100) Neutrophils % (Manual) 69 (37.0-80.0) Band Neutrophils % (Manual) 1 Lymphocytes % (Manual) 9 (10.0-50.0) Monocytes % (Manual) 15 (0-12) Eosinophils % (Manual) 6 (0-7) Basophils % (Manual) 0 (0.0-2.0) Metamyelocytes % (manual) 0 Myelocytes % (Manual) 0 Promyelocytes % (Manual) 0 Blast Cells % (Manual) 0 Reactive Lymphocytes 0 Platelet Estimate Adequate Prothrombin Time 22.7 sec (9.3-11.8) Prothrombin Time INR 2.33 (0.9-1.15) Activated Partial Thromboplast Time 38.5 SEC (24.5-34.5) Urine Color Colorless (Yellow) Urine Clarity Clear (Clear) Urine pH 6.5 (5.0-9.0) Urine Specific [place] 1.006 (1.001-1.035) Urine Protein Negative (Negative) Urine Ketones Negative (Negative) Urine Blood 3+ /uL (Negative) Urine Nitrite Negative (Negative) Urine Bilirubin Negative (Negative) Urine Urobilinogen Normal mg/dL (Negative) Urine Leukocyte Esterase Trace /uL (Negative) Urine RBC 176 /hpf (0 - 3) Urine Microscopic WBC 6 /HPF (0-3) Urine Squamous Epithelial Cells None seen /hpf (<5) Urine Bacteria None seen /hpf (None Seen) Urine Glucose 1+ mg/dL (Normal) Other Laboratory Tests 03/21/25 05:25 Brief Hx & Hospital Course: 84-year-old male underwent cystoscopy with laser cystolitholapaxy by Urology Dr. Zimmerman and admitted for observation history of AFib status post cardiac ablation on Coumadin history of bladder cancer status post TURP COPD emphysema hypothyroidism glaucoma restless leg syndrome. The patient received continuous bladder irrigation in the urine is clear cleared for discharge by Urology discharged home on leg bag he will follow up with Dr. Zimmerman in one week Consults/Reason for consult Urology Dr. Zimmerman Operations or Procedures Cystolitholapaxy Condition at Discharge: Fair Final Diagnosis/Problems List Bladder/ureteral obstruction with intractable pain secondary to ureterolithiasis s/p Cystoscopy with Laser Cystolitholapaxy by Urology Dr. Zimmerman on 03/20/2025 AFib status post cardiac ablation on Coumadin History of bladder cancer history of TURP COPD Emphysema Hypothyroidism Glaucoma Restless leg syndrome Discharge Disposition: Home Discharge Instruct/Medications Diet: Regular Activity: Light activity Follow Up/Referral: Follow up with your primary Dr Follow up with the Urology Dr. Zimmerman in one week Resume all previous home meds Medications: none Scheduled Ascorbic Acid (Vitamin C Tablet), 1,000 MG PO DAILY, (Reported) Calcium W/ Vitamins D & K (Calcium + D), 1 OR DAILY, (Reported) Cholecalciferol (D3 2000), 2,000 UNIT PO DAILY, (Reported) Docusate Sodium (Colace), 6 CAP PO DAILY, (Reported) Dorzolamide-Timolol (Dorzolamide Hcl/Timolol M), 1 ML OP BID, (Reported) Dorzolamide-Timolol (Dorzolamide Hcl/Timolol M), 1 DROP LEFTEYE BID, (Reported) Okcucpjhfqx-Byzjefscgiw-Xcp C- (Glucosamine Chondroitin), 1 CAP PO DAILY, (Reported) Levothyroxine Sodium (Levothyroxine Sodium), 75 MCG PO QAM, (Reported) Magnesium (Magnesium 250 mg), 1 TAB PO TID, (Reported) Multiple Vitamins W/ Minerals (Centrum Minis Men 50+), 1 TAB PO DAILY, (Reported) Prednisolone Acetate (Ophth) (Pred Forte), 1 % OP QID, (Reported) Prednisolone Acetate (Ophth) (Pred Forte), 1 % OP QAM, (Reported) Ropinirole Hydrochloride (Ropinirole Hcl), 1 MG PO BID, (Reported) Warfarin Sodium (Warfarin Sodium), 1 MG PO DAILY, (Reported) Zinc Gluconate (Zinc), 50 MG PO DAILY, (Reported) Discontinued Medications Warfarin Sodium (Warfarin Sodium), 1 MG PO UD, (Reported) Discharge Statement: "Patient was advised to return to the ER or call 911 if any headaches, dizziness, shortness of breath, chest pain, abdominal pain, bleeding, fevers, or worsening of medical condition. Patient was counseled about treatment plan, medications, possible side effects, patientverbalized understanding. All questions were answered to the best of my ability. This discharge took greater then 30 minutes in planning, reviewing documentation, counseling the patient, and discussing with other team members." ASSESSMENT ASSESSMENT Hospital Course Improved Assessment Bladder/ureteral obstruction with intractable pain secondary to ureterolithiasis s/p Cystoscopy with Laser Cystolitholapaxy by Urology Dr. Zimmerman on 03/20/2025 AFib status post cardiac ablation on Coumadin History of bladder cancer history of TURP COPD Emphysema Hypothyroidism Glaucoma Restless leg syndrome Date of Service: Mar 22, 2025 Billing Provider: DANNA DARNELL MD Common Visit Codes: [id number] DISCH DAY >30min DANNA DARNELL MD Mar 22, 2025 08:26
[2025-03-22 08:44] VITALS: TEMP 36.7
[2025-03-22 09:00] VITALS: BP 113/70; PULSE 58; RESP 18; TEMP 98.1; O2SAT 97
== END 2025-03-22 11:42 | disposition home or self-care (01) | DRG 694 ==
LOC: ER 11:15 → OVERFLOW 12:42 → CENTRAL 18:00
PROC: 0TCB8ZZ Extirpation of Matter from Bladder, Via Natural or Artificial Opening Endoscopic (ICD-10-PCS; 2025-03-20)
PROC: 0TCD8ZZ Extirpation of Matter from Urethra, Via Natural or Artificial Opening Endoscopic (ICD-10-PCS; principal; 2025-03-20 16:00)
DX: N20.1 Calculus of ureter (principal); E03.9 Hypothyroidism, unspecified; G25.81 Restless legs syndrome; I48.91 Unspecified atrial fibrillation; H40.9 Unspecified glaucoma; Z79.01 Long term (current) use of anticoagulants; J44.9 Chronic obstructive pulmonary disease, unspecified; N21.0 Calculus in bladder; N21.1 Calculus in urethra; J43.8 Other emphysema; Z87.442 Personal history of urinary calculi; Z85.51 Personal history of malignant neoplasm of bladder; Z83.3 Family history of diabetes mellitus; Z82.3 Family history of stroke; Z88.5 Allergy status to narcotic agent; Z90.79 Acquired absence of other genital organ(s)
CPT/HCPCS: 36415; 80048; 80053; 81001; 82360; 85007; 85025; 85027; 85610; 85730; 87086; G0378